=== PATIENT | female | born 1950 | race Caucasian/White ===

== ENCOUNTER 2023-07-13 12:42 | Inpatient (IN) | payer MEDICARE ==
[2023-07-13 13:21] LABS: #Basophils 0.1 thou/uL (0.0-0.2); #Eosinphils 0.2 thou/uL (0.0-0.7); #Neutrophils 6.9 thou/uL (1.40-6.50); %Basophils 0.5 % (0.0-1.0); %Eosinophils 2.1 % (0.0-10.0); %Lymphocytes 16.3 % (21.0-51.0); %Monocytes 9.7 % (0.0-10.0); Hematocrit 38.7 % (36.0-47.0); Hemoglobin 12.9 g/dL (12.0-16.0); Mean Corpuscular HGB CONC 33.3 g/dL (32.0-36.0); Mean Corpuscular Hemoglobin 31.9 pg (27.0-31.0); Mean Corpuscular Volume 95.6 fl (78.0-98.0); Mean Platelet Volume 12.4 fL (7.4-10.4); Platelet Count 315 10x3/uL (130-400); RBC Distribution Width 13.6 % (11.5-14.5); Red Blood Cell (RBC) Count 4.05 mill/uL (4.20-5.40); White Blood Cell (WBC) Count 10.4 10x3/uL (4.8-10.8)
[2023-07-13 13:55] LABS: ALT (SGPT) 28 U/L (8-55); AST (SGOT) 26 U/L (5-34); Albumin 3.6 g/dL (3.4-4.8); Alkaline Phosphatase 62 U/L (40-110); Anion Gap 15 mmol/L (10-20); BUN (Urea Nitrogen) 41 mg/dL (9.8-20.1); Bilirubin, Total 0.5 mg/dL (0.2-1.2); Calc. Creatinine Clearance 0 mL/min (70-130); Calcium 9.1 mg/dL (7.6-10.4); Carbon Dioxide 20 mmol/L (23-31); Chloride 101 mmol/L (98-107); Estimated GFR 15; Globulin 3.1 g/dL (2.4-3.5); Glucose 94 mg/dL (83-110); Potassium 3.4 mmol/L (3.5-5.1); Protein, Total 6.7 g/dL (5.8-8.1); Sodium 133 mmol/L (136-145)
[2023-07-13] MEDS ORDERED: Ondansetron PF 4 MG/2 ML Vial ONE (14:08)
[2023-07-13 15:07] LABS: Troponin I 0.077 ng/mL (< 0.028)
[2023-07-13] MEDS ORDERED: Potassium Chloride 20 MEQ TAB ONE (16:07)
[2023-07-13 16:08] LABS: Bacteria/HPF None Seen HPF (None Seen); Bilirubin Negative (Negative); Blood, Urine Negative (Negative); CAUTI Indications for Culture Dysuria,urgency,freq; Clarity Clear (Clear); Glucose, Urine (Dipstick) Normal (Negative); Ketone, Urine Negative (Negative); Leukocyte Negative Leu/uL (Negative); Nitrite Negative (Negative); Protein, Urine (Dipstick) Negative (Neg-Trace); RBC/HPF 0-3 HPF (0-3); Specific Gravity, Urine 1.006 (1.002-1.036); Squamous Epithelial 0-3 HPF (0-3); Urobilinogen Normal mg/dL (Less than 2); WBC/HPF 0-3 HPF (0-3); pH, Urine 5.5 (5.0-9.0)
[2023-07-13 16:09] LABS: Urine Culture Reflex No No
[2023-07-13] MEDS ORDERED: Sodium Chloride 0.9% 1,000 ML IV SCH (16:30)
[2023-07-13] MEDS ORDERED: Ondansetron PF 4 MG/2 ML Vial IVP PRN (16:30)
[2023-07-13] MEDS ORDERED: Ondansetron ODT 4 MG TAB SL PRN (16:30)
[2023-07-13 17:32] LABS: SARS-CoV-2 NAA Rapid Test DETECTED (NotDetected)
[2023-07-13] MEDS ORDERED: Acetaminophen 650 MG Suppository PR PRN (17:39)
[2023-07-13] MEDS ORDERED: Metoclopramide HCl 10 MG/2 ML VIAL IVP PRN (17:42)
[2023-07-13] MEDS ORDERED: Melatonin 3 MG TAB PO PRN (17:42)
[2023-07-13] MEDS ORDERED: Benzonatate 100 MG CAP PO PRN (17:54)
[2023-07-13 18:16] VITALS: BMI 20.7
[2023-07-13] MEDS: NS 0.9% w/ 20 MEQ KCL 1,000 ML/1,000 ML BAG IV SCH (18:42)
[2023-07-13 19:29] LABS: Magnesium 1.9 mg/dL (1.6-2.6)
[2023-07-13] MEDS ORDERED: Amlodipine 5 MG TAB PO SCH (21:00)
[2023-07-14] MEDS: NS 0.9% w/ 20 MEQ KCL 1,000 ML/1,000 ML BAG IV SCH ×2 (03:49→13:07)
[2023-07-14 07:19] LABS: Hematocrit 36.5 % (36.0-47.0); Hemoglobin 11.7 g/dL (12.0-16.0); Mean Corpuscular HGB CONC 32.1 g/dL (32.0-36.0); Mean Corpuscular Hemoglobin 32.7 pg (27.0-31.0); Mean Platelet Volume 12.6 fL (7.4-10.4); Platelet Count 256 10x3/uL (130-400); RBC Distribution Width 14.1 % (11.5-14.5); Red Blood Cell (RBC) Count 3.58 mill/uL (4.20-5.40); White Blood Cell (WBC) Count 8.3 10x3/uL (4.8-10.8)
[2023-07-14 07:42] LABS: ALT (SGPT) 20 U/L (8-55); AST (SGOT) 19 U/L (5-34); Albumin 2.9 g/dL (3.4-4.8); Alkaline Phosphatase 51 U/L (40-110); Anion Gap 12 mmol/L (10-20); BUN (Urea Nitrogen) 26 mg/dL (9.8-20.1); Bilirubin, Total 0.3 mg/dL (0.2-1.2); CRP (Inflammatory) 0.68 mg/dL (= or < 0.5); Calc. Creatinine Clearance 22 mL/min (70-130); Calcium 8.3 mg/dL (7.8-10.44); Carbon Dioxide 19 mmol/L (23-31); Chloride 113 mmol/L (98-107); Estimated GFR 28; Globulin 2.6 g/dL (2.4-3.5); Glucose 84 mg/dL (83-110); Magnesium 1.7 mg/dL (1.6-2.6); Potassium 4.7 mmol/L (3.5-5.1); Protein, Total 5.5 g/dL (5.8-8.1); Sodium 139 mmol/L (136-145)
[2023-07-14 07:43] LABS: Delete Auto Diff?? YES; Manual Diff?? YES
[2023-07-14 08:07] LABS: Band 1 % (5-11); CellaVision Operator ID LAB.GE; Eosinophils 1 % (0-10); Large Platelets 14.3 % (0-5); Lymphocytes 16 % (21-51); Metamyelocyte 2 % (0-0); Monocytes 10 % (0-10); Neutrophil 69 % (42-75); Platelet Adequacy Comment Platelets Normal; Polychromasia SLIGHT = 2-3 cells HPF (0-2); Total Cell Count 98
[2023-07-14 08:18] VITALS: TEMP 97.9
[2023-07-14] MEDS: Acetaminophen 325 MG TAB PO PRN ×2 (08:47→13:07)
[2023-07-14] MEDS ORDERED: Amlodipine 5 MG TAB PO SCH (09:00)
[2023-07-14 11:49] VITALS: BP 144/78
[2023-07-15] MEDS ORDERED: Levothyroxine Sodium 75 MCG TAB PO SCH (06:00)
== END 2023-07-14 16:52 | disposition left against medical advice (07) | DRG 682 ==
LOC: ERS 12:42 → T4-B 16:04
PROVIDERS: ADMIT Family Medicine; ATTEND Family Medicine
DX: N17.9 Acute kidney failure, unspecified (principal); U07.1 COVID-19; E87.6 Hypokalemia; E03.9 Hypothyroidism, unspecified; I10 Essential (primary) hypertension; E86.0 Dehydration; Z66 Do not resuscitate
CPT/HCPCS: 36415; 70450; 71045; 80053; 81001; 83735; 84443; 84481; 84484; 85025; 85379; 86140; 93005; 94760; 96361; 96374; J1650; J2405; J3480; U0002